=== PATIENT | male | born 1945 | race Caucasian/White ===

== ENCOUNTER → 2017-10-24 | Outpatient (CLI) | payer OTHER ==
[~2017-10-24] MED LIST: FLOMAX0.4 MG PO; MIRALAX255 GM PO; NORCO 5-325 TA1 EACH PO; NORVASC10 MG PO; OXYBUTYNIN 5 MG5 M2 PO; PRILOSEC20 MG PO; PRINIVIL20 MG PO; ZOFRAN ODT4 MG PO
== END ==
LOC: RAD 11:19
DX: R05 Cough (principal); I10 Essential (primary) hypertension; R73.9 Hyperglycemia, unspecified; K21.9 Gastro-esophageal reflux disease without esophagitis; F51.04 Psychophysiologic insomnia

== ENCOUNTER 2018-03-06 17:12 | Emergency (ER) | payer OTHER ==
[~2018-03-06] VITALS: Ht 167.6 cm; Wt 66.7 kg
[2018-03-06 17:37] VITALS: BP 144/80
== END 2018-03-06 18:10 | disposition home or self-care (01) ==
LOC: ER 17:12
DX: T16.1XXA Foreign body in right ear, initial encounter (principal); W22.8XXA Striking against or struck by other objects, initial encounter; Y93.89 Activity, other specified; Y92.89 Other specified places as the place of occurrence of the external cause; Y99.8 Other external cause status

== ENCOUNTER → 2018-05-01 | Outpatient (CLI) | payer OTHER | LOC: ULTRA 09:21 → RAD 11:49 → ULTRA 13:22 | DX: N28.1 Cyst of kidney, acquired (principal); R16.0 Hepatomegaly, not elsewhere classified; R05 Cough ==

== ENCOUNTER 2019-07-06 14:13 | Observation (INO) | payer OTHER ==
[~2019-07-06] VITALS: Ht 170.2 cm; Wt 70.3 kg
[2019-07-06 14:17] VITALS: BP 122/68
[2019-07-06 16:18] LABS: ABSOLUTE NEUTROPHILS 3.8 thou/uL (1.4-8.2); BASOPHILS 0.7 % (0.0-2.0); EOSINOPHILS 2.1 % (0.0-3.0); HEMATOCRIT 43.7 % (42.0-52.0); HEMOGLOBIN 15.1 gm/dL (14.0-18.0); LYMPHOCYTES 13.2 % (24.0-44.0); MCH 31.1 pg (26.0-34.0); MCHC 34.4 g/dL (28.0-37.0); MCV 90.4 fL (80.0-100.0); MONOCYTES 6.6 % (1.0-8.0); PLATELET COUNT 152 thou/uL (150-400); POLYS 77.4 % (36.0-66.0); RBC 4.84 mil/uL (4.50-6.00); RDW 13.6 % (10.5-14.5); WBC 4.9 thou/uL (4.0-11.0)
[2019-07-06 16:20] LABS: CALCIUM 8.9 mg/dL (8.5-10.1); POTASSIUM 4.1 mmol/L (3.5-5.1)
[2019-07-06 16:27] VITALS: BP 122/68
[2019-07-06 16:39] VITALS: BP 141/75
[2019-07-06 17:03] VITALS: BP 132/80
[2019-07-06 19:32] VITALS: BP 126/76
[2019-07-06] MEDS ORDERED: COZAAR 25 MG TA25 M2 PO (20:25)
--- NOTE | 2019-07-06 21:14 | NUR ---
PATIENT ALERT AND ORIENTED ARRIVED ON 3W ABOUT 1700 VIA ED. PATIENT EXPECTS TO LEAVE IN AM. PATIENT IN STABLE CONDITION WITH NO PAIN AND ICE PACK TO LEFT HAND BEE STING. PATIENT STATES HE DROVE HIMSELF TO HOSPITAL AND EXPECTS TO DRIVE HOME TOMORROW. DR. HERNANDEZ CONTACT REGARDING ADMISSION AND NO NEW ORDERS.
[2019-07-06 23:53] VITALS: BP 109/51
--- NOTE | 2019-07-07 01:32 | NUR ---
ASSESSMENT: PT TOLERATING ICE PACK TO EFT PINKY FINGER WHERE BEE STUNG HIM. DOES NOT REQUEST PAIN MEDS, DENIES PAIN. FINGER SLIGHTLY SWOLLEN AND WARM TO TOUCH. FEELING INTACT. PT STATE THAT FOX FINGERS ARE ALWAYS TIGHT AND SLIGHTLY SWOLLEN WHEN HE WAKES UP. SLOWLY THE SWELLING DECREASES AND HE IS ON ABOUT HIS DAY. [place] AND HAVE FOX HEARING AIDS. PT WILL PROBABLY DC LATER TODAY, OBSERVATION STATUS. VSS, AFEBRILE. SR PER MONITOR. GOOD PROGRESS TOWARDS DC GOALS, WILL CONTINUE TO MONITOR.
[2019-07-07 04:27] VITALS: BP 125/64
[2019-07-07 08:02] VITALS: BP 132/70
[2019-07-07 10:37] VITALS: BP 132/70
--- NOTE | 2019-07-07 10:50 | NUR ---
pt's assessment has done, pt is A&OX3, PT's vs are stable, pt denies SOB and pain, pt's care plan goals have meeting at this time, RN has received dr brooke , pt is going to D/C to home today.
--- NOTE | 2019-07-07 11:55 | NUR ---
RN has giving discharging teaching, PT understanders well , pt was going home about 1130am by himself, RN has asked pt to call when pt gets home, pt just calls RN , pt gets home safety now.
--- NOTE | 2019-08-23 10:36 | DSS ---
[facility] [place] [address] SHORT STAY SUMMARY Name: LINDA ALMODOVAR Room #: 352-P [facility] Maria Ines Kim#: [id number] Admission: 07/06/19 Attend Phys: Antwon Tam MD Discharge: 07/07/19 Date of : 45 Report #: [id number] THIS REPORT FOR: //name// CC: Antwon Tam ATTENDING PHYSICIAN: Dr. Tam. CHIEF COMPLAINT: Swelling of the left hand and lip following a bee bite. HISTORY OF PRESENT ILLNESS: The patient is a 74-year-old male who was working in the yard when he was bit by bees. The patient reports that the reaction was much more pronounced than the previous time he was exposed to the bee. He had developed lower lip swelling and also swelling around his left hand. The patient denied having any shortness of breath or any swallowing difficulty. In view of his reaction, he presented to the Emergency Room and was given IV Solu-Medrol. The patient was monitored overnight and showed improvement. He reports that the swelling has now improved and he no longer has any discomfort. He denied having any breathing difficulty. PAST MEDICAL HISTORY: Significant for history of benign prostatic hypertrophy, hypertension. PAST SURGICAL HISTORY: Prostate surgery and a ureteric stent placement. MEDICATIONS: He was currently on tamsulosin, amlodipine, lisinopril, oxybutynin, omeprazole. ALLERGIES: He is not known to be allergic to medication. SOCIAL HISTORY: Does not smoke. He is currently very active. REVIEW OF SYSTEMS: He denied having any chest pain, shortness of breath, cough, fever, nausea or vomiting. PHYSICAL EXAMINATION: GENERAL: Elderly gentleman who was resting in bed, did not appear to be in any distress. He was awake, alert, oriented to place and person. VITAL SIGNS: He was afebrile with a temperature of 36.6, pulse of 63, respiratory rate 18, blood pressure 132/70, oxygen saturation 98% on room air. HEENT AND NECK: Skull was atraumatic. There were no pallor, no icterus. Mucosa was moist. Neck was supple. There was no ____ edema noted. Oral mucosa was normal. There was no tongue swelling and there was no lymphadenopathy. LUNGS: Clear to auscultation bilaterally, with no wheeze or crackles. HEART: First and second normal. ABDOMEN: Soft, nontender, bowel sounds normally heard. EXTREMITIES: Did not reveal any edema. NEUROLOGIC: Nonfocal. [address] [address] SHORT STAY SUMMARY Name: LINDA ALMODOVAR Room #: 352-P [facility] Judy#: [id number] Admission: 07/06/19 Attend Phys: Antwon Tam MD Discharge: 07/07/19 Date of : 45 Report #: [id number] LABORATORY DATA: On admission showed a white cell count of 4.9, hemoglobin 15.1, hematocrit 43.7 and a platelet count of 152. The electrolytes showed a sodium of 143, potassium 4.1, chloride 106, bicarbonate 27, BUN of 25, creatinine of 1, glucose was 119, calcium 8.9. ASSESSMENT: 1. Angioedema. 2. Bee stings. 3. Hypertension. 4. Benign prostatic hypertrophy. PLAN: To discharge the patient to home as he was medically stable. Continue with one more dose of Solu-Medrol and advised him to continue with his home medications and return back to routine activity. The patient to be discharged to home today. <ELECTRONICALLY SIGNED> By: Jayleen Moody MD 08/23/19 1036 [id number] Jayleen Moody MD /nt
== END 2019-07-07 11:28 | disposition home or self-care (01) ==
LOC: ER 14:13 → EROBS 16:15 → 3W 16:39
PROVIDERS: Nurse Practitioner Family; ADMIT Internal Medicine Geriatric Medicine
DX: T63.441A Toxic effect of venom of bees, accidental (unintentional), initial encounter (principal); T78.3XXA Angioneurotic edema, initial encounter; N40.0 Benign prostatic hyperplasia without lower urinary tract symptoms; I10 Essential (primary) hypertension; Z79.899 Other long term (current) drug therapy

== ENCOUNTER 2019-10-04 15:51 | Emergency (ER) | payer OTHER ==
[~2019-10-04] VITALS: Ht 162.6 cm; Wt 69.8 kg
[~2019-10-04 15:51] MED LIST changes: +COZAAR 25 MG TA25 M2 PO
[2019-10-04 18:20] VITALS: BP 142/70
== END 2019-10-04 18:54 | disposition home or self-care (01) ==
LOC: ER 15:51
DX: S16.1XXA Strain of muscle, fascia and tendon at neck level, initial encounter (principal); S00.81XA Abrasion of other part of head, initial encounter; W01.0XXA Fall on same level from slipping, tripping and stumbling without subsequent striking against object, initial encounter; Y93.89 Activity, other specified; Y92.89 Other specified places as the place of occurrence of the external cause; Y99.8 Other external cause status

== ENCOUNTER 2020-12-23 12:26 | Emergency (ER) | payer OTHER ==
[~2020-12-23] VITALS: Ht 170.2 cm; Wt 71.2 kg
[2020-12-23 13:04] LABS: ABSOLUTE NEUTROPHILS 6.8 thou/uL (1.4-8.2); BASOPHILS 0.2 % (0.0-2.0); EOSINOPHILS 0.1 % (0.0-3.0); HEMATOCRIT 46.4 % (42.0-52.0); HEMOGLOBIN 15.7 gm/dL (14.0-18.0); LYMPHOCYTES 4.6 % (24.0-44.0); MCH 30.4 pg (26.0-34.0); MCHC 33.9 g/dL (28.0-37.0); MCV 89.8 fL (80.0-100.0); MONOCYTES 1.4 % (1.0-8.0); PLATELET COUNT 165 thou/uL (150-400); POLYS 93.7 % (36.0-66.0); RBC 5.17 mil/uL (4.50-6.00); RDW 13.4 % (10.5-14.5); WBC 7.2 thou/uL (4.0-11.0)
--- NOTE | 2020-12-23 13:08 | EKG ---
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
[2020-12-23 13:10] LABS: ANION GAP 15 mmol/L (7-16); BUN 22 mg/dL (7-18); CHLORIDE 102 mmol/L (98-107); CO2 25 mmol/L (21-32); GLUCOSE 213 mg/dL (74-106); SODIUM 142 mmol/L (136-145)
[2020-12-23 13:11] LABS: POTASSIUM 4.2 mmol/L (3.5-5.1)
[2020-12-23 13:20] LABS: ALBUMIN 4.4 g/dL (3.4-5.0); DIRECT BILIRUBIN < 0.1 mg/dL (<0.1-0.2); LIPASE 55 U/L (73-393); SGOT 23 U/L (15-37); SGPT 22 U/L (16-63); TOTAL BILIRUBIN 0.6 mg/dL (0.2-1.0); TOTAL PROTEIN 7.4 g/dL (6.4-8.2); TROPONIN-I <0.06 ng/mL (<0.06)
[2020-12-23 16:30] VITALS: BP 130/55
[2020-12-23 17:12] LABS: URINE BILIRUBIN NEGATIVE (Negative); URINE BLOOD TRACE (Negative); URINE CLARITY CLEAR; URINE COLOR YELLOW; URINE GLUCOSE-RANDOM* 2+ (Negative); URINE KETONES 1+ (Negative); URINE LEUKOCYTES-REFLEX NEGATIVE (Negative); URINE NITRITE-REFLEX NEGATIVE (Negative); URINE PROTEIN (DIPSTICK) NEGATIVE (Negative); URINE UROBILINOGEN 0.2 E.U./dl (0.2-1.0)
[2020-12-23] MEDS ORDERED: BENTYL 10 MG CA10 M1 PO (17:22)
[2020-12-23] MEDS ORDERED: ONDANSETRON HCL4 M2 PO (17:22)
== END 2020-12-23 17:50 | disposition home or self-care (01) ==
LOC: ER 12:26
PROVIDERS: Emergency Medicine; Nurse Practitioner
DX: R10.84 Generalized abdominal pain (principal); R11.2 Nausea with vomiting, unspecified; Z79.899 Other long term (current) drug therapy

== ENCOUNTER 2021-03-17 11:47 | Emergency (ER) | payer OTHER ==
[~2021-03-17] VITALS: Ht 170.2 cm; Wt 72.6 kg
[~2021-03-17 11:47] MED LIST changes: +BENTYL 10 MG CA10 M1 PO; +ONDANSETRON HCL4 M2 PO
[2021-03-17 13:47] VITALS: BP 119/58
== END 2021-03-17 13:47 | disposition home or self-care (01) ==
LOC: ER 11:47
DX: S51.811A Laceration without foreign body of right forearm, initial encounter (principal); S61.401A Unspecified open wound of right hand, initial encounter; S01.81XA Laceration without foreign body of other part of head, initial encounter; S70.311A Abrasion, right thigh, initial encounter; S80.212A Abrasion, left knee, initial encounter; I10 Essential (primary) hypertension; Z79.899 Other long term (current) drug therapy; W10.8XXA Fall (on) (from) other stairs and steps, initial encounter; Y93.89 Activity, other specified; Y92.098 Other place in other non-institutional residence as the place of occurrence of the external cause; Y99.8 Other external cause status